=== PATIENT | female | born 1945 | race African-American/Black ===

== ENCOUNTER 2021-08-13 14:04 | Observation (INO) ==
[2021-08-13 14:49] LABS: Basophils # 0.1 10*3/uL (0.0-0.2); Eosinophils # 0.2 10*3/uL (0.0-0.87); Eosinophils % 4.4 % (0.00-10.9); Hematocrit 38.4 VOL% (35.7-47.0); Hemoglobin 12.7 GM/DL (12.0-16.0); Immature Granulocytes % 0.2 %; Immature Granulocytes Absolute 0.01 #; Lymphocytes # 1.2 10*3/uL (1.4-4.0); Lymphocytes % 22.1 % (21.3-54.2); Mean Corpuscular HGB Conc 33.1 GM/DL (32-36); Mean Platelet Volume 10.8 FL (9.6-12.0); Monocytes % 10.9 % (1.7-12.7); Neutrophils % 61.4 % (38.7-73.9); Platelet Count 236 T/CUMM (130-400); Red Blood Count 4.52 MC/CUMM (3.8-5.5); Red Cell Distribution Width 13.8 % (9.3-17.3); White Blood Count 5.2 T/CUMM (4-12)
[2021-08-13] MEDS ORDERED: MAGNESIUM SULF RIDER 2 GM/50 ML PREMIX IV PRN (15:04)
[2021-08-13] MEDS ORDERED: ACETAMINOPHEN 325 MG TABLET PO PRN (15:04)
[2021-08-13] MEDS ORDERED: MAGNESIUM SULF RIDER 4 GM/100 ML PREMIX IV PRN (15:04)
[2021-08-13 15:10] LABS: Alanine Aminotransferase 27 U/L (13-56); Albumin 4.3 G/DL (3.4-5.0); Alkaline Phosphatase 69 U/L (45-117); Aspartate Amino Transferase 15 U/L (0-37); Bilirubin,Total < 0.39 MG/DL (0.20-1.00); Blood Urea Nitrogen 37 MG/DL (7-18); Calcium 9.9 MG/DL (8.5-10.1); Carbon Dioxide 29 MMOL/L (21-32); Estimated Glom Filtration Rate 32 ML/MIN; Glucose 119 MG/DL (74-106); Osmolality,Calculated 292.1 MOS/KG (273-304); Potassium 3.5 MMOL/L (3.5-5.1); Sodium 142 MMOL/L (136-145); Total Protein 7.8 G/DL (6.4-8.2)
[2021-08-13] MEDS ORDERED: hydrALAZINE 20 MG/1 ML VIAL IV PRN (15:16)
[2021-08-13 15:33] LABS: PT Patient Result 10.9 SECS (10.5-12.0); Partial Thromboplastin Time 28.2 SECS (23.9-33.8)
[2021-08-13] MEDS ORDERED: ATROPINE 0.4 MG/1 ML VIAL IV PRN (18:43)
[2021-08-13] MEDS ORDERED: ATROPINE 1 MG/10 ML SYRINGE IV PRN (22:34)
[2021-08-14 05:17] LABS: Basophils % 0.8 % (0.0-0.8); Eosinophils # 0.2 10*3/uL (0.0-0.87); Eosinophils % 6.2 % (0.00-10.9); Hematocrit 38.6 VOL% (35.7-47.0); Hemoglobin 12.5 GM/DL (12.0-16.0); Immature Granulocytes % 0.3 %; Immature Granulocytes Absolute 0.01 #; Lymphocytes # 0.8 10*3/uL (1.4-4.0); Lymphocytes % 22.3 % (21.3-54.2); Mean Corpuscular HGB Conc 32.4 GM/DL (32-36); Mean Corpuscular Volume 84.5 FL (87-102); Mean Platelet Volume 10.9 FL (9.6-12.0); Monocytes % 12.1 % (1.7-12.7); Neutrophils % 58.3 % (38.7-73.9); Platelet Count 237 T/CUMM (130-400); Red Blood Count 4.57 MC/CUMM (3.8-5.5); Red Cell Distribution Width 13.9 % (9.3-17.3); White Blood Count 3.7 T/CUMM (4-12)
[2021-08-14 05:44] LABS: Calcium 9.7 MG/DL (8.5-10.1); Osmolality,Calculated 289.1 MOS/KG (273-304); Potassium 3.6 MMOL/L (3.5-5.1); Risk Ratio 3.08; Thyroid Stimulating Hormone 2.64 uIU/ml (0.358-3.74); VLDL Cholesterol 20.6 MG/DL
[2021-08-14] MEDS ORDERED: ceFAZolin 1,000 MG VIAL IRRIG ONE (07:07)
[2021-08-14] MEDS ORDERED: diphenhydrAMINE CAP 50 MG CAPSULE PO ONE (07:07)
[2021-08-14] MEDS ORDERED: DIAZEPAM 5 MG TABLET PO ONE (07:07)
[2021-08-14] MEDS ORDERED: HEPARIN/NACL 0.9% 2 UNITS/ML 1,000 UNIT/500 ML BAG IV ONE (07:30)
[2021-08-14] MEDS ORDERED: LIDOCAINE 1% 20 ML VIAL ONE ×2 (07:30→08:32)
[2021-08-14] MEDS ORDERED: TISSUE ADHESIVE 1 EACH APPLICATOR TOP ONE (07:30)
[2021-08-14] MEDS ORDERED: ceFAZolin 1,000 MG VIAL ONE (08:32)
[2021-08-14] MEDS ORDERED: MIDAZOLAM 2 MG/2 ML VIAL ONE ×2 (08:40→08:58)
[2021-08-14] MEDS ORDERED: fentaNYL 100 MCG/2 ML VIAL ONE (08:42)
[2021-08-14] MEDS ORDERED: ASCORBIC ACID 500 MG TABLET PO SCH (09:00)
[2021-08-14] MEDS: MAGNESIUM OXIDE 400 MG TABLET PO SCH (10:32)
[2021-08-14] MEDS: amLODIPine 5 MG TABLET PO SCH (10:34)
[2021-08-14] MEDS: CHLORTHALIDONE 25 MG TABLET PO SCH (10:34)
[2021-08-14] MEDS: ZINC GLUCONATE 50 MG TABLET PO SCH (10:34)
[2021-08-14] MEDS: CYANOCOBALAMIN 500 MCG TABLET PO SCH (10:34)
[2021-08-14] MEDS: ASCORBIC ACID 500 MG TABLET PO SCH (10:35)
[2021-08-14] MEDS: CHOLECALCIFEROL 5,000 UNIT TABLET PO SCH (10:35)
[2021-08-14] MEDS: SODIUM CHLORIDE 0.9% 1,000 ML IV SCH (12:29)
[2021-08-14] MEDS: ONDANSETRON 4 MG/2 ML VIAL IV PRN (18:36)
[2021-08-14] MEDS ORDERED: SIMVASTATIN 40 MG TABLET PO SCH (21:00)
[2021-08-15] MEDS: ONDANSETRON 4 MG/2 ML VIAL IV PRN (05:36)
[2021-08-15 06:02] LABS: Basophils % 0.6 % (0.0-0.8); Eosinophils # 0.2 10*3/uL (0.0-0.87); Eosinophils % 4.2 % (0.00-10.9); Hematocrit 36.7 VOL% (35.7-47.0); Hemoglobin 11.7 GM/DL (12.0-16.0); Immature Granulocytes % 0.2 %; Immature Granulocytes Absolute 0.01 #; Lymphocytes # 0.6 10*3/uL (1.4-4.0); Lymphocytes % 11.8 % (21.3-54.2); Mean Corpuscular HGB Conc 31.9 GM/DL (32-36); Mean Corpuscular Volume 85.9 FL (87-102); Mean Platelet Volume 11.5 FL (9.6-12.0); Monocytes % 9.1 % (1.7-12.7); Neutrophils % 74.1 % (38.7-73.9); Platelet Count 210 T/CUMM (130-400); Red Blood Count 4.27 MC/CUMM (3.8-5.5); Red Cell Distribution Width 13.8 % (9.3-17.3); White Blood Count 5.2 T/CUMM (4-12)
[2021-08-15 06:12] LABS: Calcium 9.3 MG/DL (8.5-10.1); Osmolality,Calculated 283.5 MOS/KG (273-304); Potassium 3.6 MMOL/L (3.5-5.1)
[2021-08-15] MEDS: POLYETHYLENE GLYCOL POWDER 17 GM PACK PO SCH ×2 (06:52→08:35)
[2021-08-15] MEDS: SODIUM CHLORIDE 0.9% 1,000 ML IV SCH (08:35)
[2021-08-15] MEDS: MAGNESIUM OXIDE 400 MG TABLET PO SCH (08:44)
[2021-08-15] MEDS: ASCORBIC ACID 500 MG TABLET PO SCH (08:44)
[2021-08-15] MEDS: CHOLECALCIFEROL 5,000 UNIT TABLET PO SCH (08:44)
[2021-08-15] MEDS: CYANOCOBALAMIN 500 MCG TABLET PO SCH (08:44)
[2021-08-15] MEDS: amLODIPine 5 MG TABLET PO SCH (08:44)
[2021-08-15] MEDS: ZINC GLUCONATE 50 MG TABLET PO SCH (08:44)
[2021-08-15] MEDS: CHLORTHALIDONE 25 MG TABLET PO SCH (08:45)
[2021-08-15] MEDS ORDERED: SIMETHICONE CHEW 125 MG TABLET PO SCH (09:00)
[2021-08-15 09:48] VITALS: BP 112/67
== END 2021-08-15 12:34 | disposition home or self-care (01) ==
LOC: N.ED 14:04 → N.EDINP 14:04 → N.TELEN 17:45
PROVIDERS: ADMIT Internal Medicine Cardiovascular Disease; ATTEND Internal Medicine Cardiovascular Disease